=== PATIENT | female | born 1985 | race Two or more races ===

== ENCOUNTER 2020-09-22 21:34 | Emergency (ER) | payer SELFPAY ==
[~2020-09-22] VITALS: Ht 165.1 cm; Wt 90.7 kg
== END 2020-09-22 22:32 | disposition left against medical advice (07) ==
LOC: ER 21:34
DX: R10.84 Generalized abdominal pain (principal); Z53.21 Procedure and treatment not carried out due to patient leaving prior to being seen by health care provider